=== PATIENT | female | born 1980 | race Caucasian/White ===

== ENCOUNTER → 2024-09-05 | Outpatient (CLI) | payer SELFPAY | END | disposition home or self-care (01) | PROVIDERS: Referring Provider Nurse Practitioner Women's Health; Visit Provider Nurse Practitioner Women's Health | DX: N85.2 Hypertrophy of uterus (principal) | CPT/HCPCS: 76856 ==

== ENCOUNTER → 2025-08-28 | Outpatient (CLI) | payer SELFPAY ==
--- NOTE | 2025-08-28 14:40 | US_ITS ---
PROCEDURE: PELVIC (NON ) 08/28/2025 REASON FOR EXAM: TV PROBE ONLY IF PATIENT IS COOPERATIVE TECHNIQUE: Procedure Code: USPEL Modality: US Procedure: PELVIC (NON ) COMPARISON: None FINDINGS: Uterus: Anteverted, measuring 10.5 ??? 11.6 ??? 6.6 cm. Multiple fibroids are seen: 9.0 ??? 8.8 ??? 6.5 cm, 4.1 ??? 4.7 ??? 3.6 cm, 4.0 ??? 4.1 ??? 3.7 cm, and 4.3 ??? 4.1 ??? 3.8 cm. Endometrium: Measures 10 mm, hyperechoic. Cervix: Within normal limits. Right Ovary: Measures 2.9 ??? 1.9 ??? 1.9 cm. Simple cyst measuring 1.4 ??? 1.3 ??? 1.3 cm noted. Blood flow within normal limits. Left Ovary: Measures 2.5 ??? 1.8 ??? 1.3 cm. No adnexal mass. Blood flow within normal limits. Cul-de-sac: No free fluid. Urinary Bladder: Volume at time of exam 110 mL. US/Pelvic (Non ) IMPRESSION: Enlarged uterus containing multiple intramural fibroids as detailed. Right ovarian simple cyst measuring approximately 1.4 cm. Otherwise unremarkable ovaries. No free fluid. Reading [facility]
== END | disposition home or self-care (01) ==
LOC: US 14:38
PROVIDERS: Referring Provider Obstetrics & Gynecology; Visit Provider Obstetrics & Gynecology
DX: D25.9 Leiomyoma of uterus, unspecified (principal)
CPT/HCPCS: 76856